=== PATIENT | male | born 1985 | race Caucasian/White ===

== ENCOUNTER 2017-06-25 09:44 | Emergency (ER) | payer MEDICAID ==
[~2017-06-25] VITALS: Ht 177.8 cm; Wt 71.0 kg
[2017-06-25 09:46] VITALS: BP 162/93; PULSE 78; RESP 18; TEMP 97.9; O2SAT 99
[2017-06-25 10:07] VITALS: BP 137/70; PULSE 75; RESP 14
--- NOTE | 2017-06-25 10:44 | PD ---
HPI Chief Complaint: Chest Pain Time Seen by Provider: 10:22 Travel History International Travel<30 days: No Contact w/Intl Traveler<30days: No Traveled to known affect area: No History of Present Illness HPI 31yo M with no significant PMH presents to the ED with c/o midsternal chest pain since yesterday. Said pain is midsternal and radiates to left arm and upper back. Pt felt anxious and it was intermittent. Said he felt palpitations today with sob. Said he checked his heart rate and it was 104 so he was concern. Denies any fever, cough, hemoptysis, PE/DVT, recent surgery or immobilization, vomiting, abdominal pain, focal weakness or numbness. PFSH Past Medical History Diminished Hearing: No Ulcer: Yes Influenza Vaccination: No Past Surgical History Other Surgery: Yes (CAUTERIZED ULCER ) Social History Alcohol Use: No Tobacco Use: Yes (/2 PPD) Substance Use: Yes (MARIJUANA) Allergies-Medications (Allergen,Severity, Reaction): Coded Allergies: No Known Allergies (Unverified , 06/25/17) Reported Meds & Prescriptions Reported Meds & Active Scripts Active Ibuprofen 400 Mg Tab 400 Mg PO Q8H PRN Review of Systems Except as stated in HPI: all other systems reviewed are Neg Physical Exam Narrative GENERAL: 31yo M not in distress. SKIN: Focused skin assessment warm/dry. HEAD: Atraumatic. Normocephalic. EYES: Pupils equal and round. No scleral icterus. No injection or drainage. CARDIOVASCULAR: Regular rate and rhythm. No murmur appreciated. RESPIRATORY: No accessory muscle use. Clear to auscultation. Breath sounds equal bilaterally. GASTROINTESTINAL: Abdomen soft, non-tender, nondistended. MUSCULOSKELETAL: No obvious deformities. No clubbing. No cyanosis. No edema. NEUROLOGICAL: Awake and alert. No obvious cranial nerve deficits. Motor grossly within normal limits. Normal speech. PSYCHIATRIC: Appropriate mood and affect; insight and judgment normal. Data Data Last Documented VS Vital Signs Date Time Temp Pulse Resp B/P (MAP) Pulse Ox O2 Delivery O2 Flow Rate FiO2 06/25/17 10:07 75 14 137/70 (92) 06/25/17 10:03 99 Room Air 06/25/17 09:46 97.9 Orders Orders Basic Metabolic Panel (Bmp) (06/25/17 10:33) Complete Blood Count With Diff (06/25/17 10:33) Troponin I (06/25/17 10:33) Chest, Single Ap (06/25/17 10:33) Ibuprofen (Motrin) (06/25/17 10:45) Electrocardiogram (06/25/17 10:02) Ed Discharge Order (06/25/17 14:36) Labs Laboratory Tests Test 06/25/17 10:45 White Blood Count 5.1 TH/MM3 Red Blood Count 5.48 MIL/MM3 Hemoglobin 16.3 GM/DL Hematocrit 47.1 % Mean Corpuscular Volume 85.9 FL Mean Corpuscular Hemoglobin 29.7 PG Mean Corpuscular Hemoglobin Concent 34.6 % Red Cell Distribution Width 13.3 % Platelet Count 236 TH/MM3 Mean Platelet Volume 9.5 FL Neutrophils (%) (Auto) 43.0 % Lymphocytes (%) (Auto) 44.1 % Monocytes (%) (Auto) 9.2 % Eosinophils (%) (Auto) 2.5 % Basophils (%) (Auto) 1.2 % Neutrophils # (Auto) 2.2 TH/MM3 Lymphocytes # (Auto) 2.2 TH/MM3 Monocytes # (Auto) 0.5 TH/MM3 Eosinophils # (Auto) 0.1 TH/MM3 Basophils # (Auto) 0.1 TH/MM3 CBC Comment DIFF FINAL Differential Comment Blood Urea Nitrogen 20 MG/DL Creatinine 1.08 MG/DL Random Glucose 83 MG/DL Calcium Level 9.5 MG/DL Sodium Level 138 MEQ/L Potassium Level 3.7 MEQ/L Chloride Level 105 MEQ/L Carbon Dioxide Level 25.8 MEQ/L Anion Gap 7 MEQ/L Estimat Glomerular Filtration Rate 80 ML/MIN Troponin I LESS THAN 0.02 NG/ML [facility] Medical Decision Making Medical Screen Exam Complete: Yes Emergency Medical Condition: Yes Interpretation(s) EKG: NSR 76bpm. Normal axis. No ST segment elevation or depression. Differential Diagnosis Atypical chest pain vs. anxiety vs. pneumonia Narrative Course 31yo M with no cardiac risk factor here with atypical chest pain. Labs reviewed , no leukocytosis. Troponin negative. CXR negative. Pt given ibuprofen and reevaluated at bedside. Said chest pain resolved. Wanted something for anxiety but said he has a long drive home and cant get anyone to pick him up. Said he actually feels better right now. Instructed pt to follow up with PMD and return to the ED if symptoms worsen. Pt is PERC negative and do not think chest pain is typical. Diagnosis Primary Impression: Atypical chest pain Patient Instructions: General Instructions Departure Forms: Tests/Procedures Additional Instructions: Please follow up with your primary care physician in 3-7 days. Return to the ED if symptoms worsen. Med/Other Pt SpecificInfo: Prescription(s) given Scripts Ibuprofen (Ibuprofen) 400 Mg Tab 400 MG PO Q8H Y for PAIN SCALE 1 TO 4, #20 TAB 0 Refills Prov: Francine Lockhart DO 06/25/17 Disposition: 01 DISCHARGE HOME Condition: Stable Francine Lockhart DO Jun 25, 2017 10:44
[2017-06-25] MEDS ORDERED: IBUPROFEN 600 MG TAB PO ONE (10:45)
--- NOTE | 2017-06-25 11:05 | RADRPT ---
EXAM DATE/TIME: 06/25/2017 10:47 [facility] COMPARISON: No previous studies available for comparison. INDICATIONS : Chest pain. MEDICAL HISTORY : None. SURGICAL HISTORY : None. ENCOUNTER: Initial ACUITY: 1 day PAIN SCORE: 4/10 LOCATION: Left upper chest FINDINGS: A single view of the chest demonstrates the lungs to be symmetrically aerated without evidence of mas s, infiltrate or effusion. The cardiomediastinal contours are unremarkable. Osseous structures are intact. CONCLUSION: No acute disease. Audi Tsai MD on June 25, 2017 at 11:03 Board Certified Radiologist. This report was verified electronically.
[2017-06-25 11:17] LABS: AUTOMATED NEUTROPHIL # 2.2 TH/MM3 (1.8-7.7); BASOPHIL # 0.1 TH/MM3 (0-0.2); BASOPHIL % 1.2 % (0.0-2.0); EOSINOPHIL # 0.1 TH/MM3 (0-0.4); EOSINOPHIL % 2.5 % (0.0-4.0); HEMATOCRIT 47.1 % (39.0-51.0); HEMOGLOBIN 16.3 GM/DL (13.0-17.0); LYMPH % 44.1 % (9.0-44.0); LYMPHOCYTE # 2.2 TH/MM3 (1.0-4.8); MEAN CELL VOLUME 85.9 FL (80.0-100.0); MEAN CORPUSCULAR HEMOGLOBIN 29.7 PG (27.0-34.0); MEAN CORPUSCULAR HGB CONC 34.6 % (32.0-36.0); MEAN PLATELET VOLUME 9.5 FL (7.0-11.0); MONO % 9.2 % (0.0-8.0); MONOCYTE # 0.5 TH/MM3 (0-0.9); PLATELET COUNT 236 TH/MM3 (150-450); RED BLOOD COUNT 5.48 MIL/MM3 (4.50-5.90); RED CELL DISTRIBUTION WIDTH 13.3 % (11.6-17.2); WHITE BLOOD COUNT 5.1 TH/MM3 (4.0-11.0)
[2017-06-25 11:39] LABS: BICARBONATE 25.8 MEQ/L (21.0-32.0); BLOOD UREA NITROGEN 20 MG/DL (7-18); CALCIUM 9.5 MG/DL (8.5-10.1); CHLORIDE 105 MEQ/L (98-107); CREATININE 1.08 MG/DL (0.60-1.30); GLOMERULAR FILTRATION RATE 80 ML/MIN (>89); GLUCOSE,RANDOM 83 MG/DL (74-106); SODIUM (NA) 138 MEQ/L (136-145)
[2017-06-25 11:43] LABS: TROPONIN I LESS THAN 0.02 NG/ML (0.02-0.05)
[2017-06-25] MEDS ORDERED: IBUP1TAB5 PO (14:35)
--- NOTE | 2017-06-25 14:49 | EKG ---
Date Performed: 06/25/2017 Time Performed: 10:02:19 PTAGE: 31 years EKG: Sinus rhythm WITH SINUS ARRHYTHMIA EARLY REPOLARIZATION BORDERLINE ECG NO PREVIOUS TRACING DOCTOR: Tobi Raygoza Interpretating Date/Time 06/25/2017 14:48:18
== END 2017-06-25 15:17 | disposition home or self-care (01) ==
LOC: NEPE 09:44
DX: R07.89 Other chest pain (principal); R00.2 Palpitations; R06.02 Shortness of breath; I49.8 Other specified cardiac arrhythmias; F17.200 Nicotine dependence, unspecified, uncomplicated
CPT/HCPCS: 71010; 80048; 84484; 85025; 93005; 99285